=== PATIENT | female | born 1945 | race Caucasian/White ===

== ENCOUNTER 2021-05-28 12:11 | Emergency (ER) | payer MEDICARE, OTHER ==
[2021-05-28 14:01] LABS: BASOPHIL 0.4 % (0-2); EOSINOPHIL 0.4 % (0-7); HCT 37.2 % (37.0-47.0); LYMPHOCYTE 10.7 % (15-48); MCH 30.9 pg (25.0-31.0); MCHC 32.3 g/dL (32.0-36.0); MCV 95.9 fL (78.0-100.0); MONOCYTE 4.1 % (0-12); MPV 10.4 fL (6.0-9.5); NEUTROPHIL 83.8 % (41-80); NRBC 0; PLT 195 K/uL (150-400); RBC 3.88 M/uL (4.20-5.40); RDW 14.4 % (11.5-14.0); WBC 10.5 K/uL (4.0-10.5)
[2021-05-28 14:06] LABS: INR 0.96 (0.9-1.2); PROTHROMBIN TIME 12.2 SECONDS (11.8-13.4)
[2021-05-28 14:07] LABS: PTT 29.7 SECONDS (24.4-34.7)
[2021-05-28 14:13] LABS: ALBUMIN 3.4 g/dL (3.4-5.0); BILIRUBIN - TOTAL 0.4 mg/dL (0.2-1.0); BUN/CREAT RATIO (CALC) 11.6 RATIO; CREATININE 0.95 mg/dL (0.51-0.95); GLOBULIN (CALCULATION) 3.3 g/dL; POTASSIUM 4.1 mmol/L (3.5-5.1); TOTAL PROTEIN 6.7 g/dL (6.4-8.2)
== END 2021-05-28 16:49 | disposition home or self-care (01) ==
LOC: FER 12:11
PROVIDERS: Physician Assistant
DX: M25.512 Pain in left shoulder (principal); R07.89 Other chest pain; R94.31 Abnormal electrocardiogram [ECG] [EKG]; F17.200 Nicotine dependence, unspecified, uncomplicated; Z86.73 Personal history of transient ischemic attack (TIA), and cerebral infarction without residual deficits; Z95.1 Presence of aortocoronary bypass graft; Z95.5 Presence of coronary angioplasty implant and graft; Z79.82 Long term (current) use of aspirin; Z79.01 Long term (current) use of anticoagulants
CPT/HCPCS: 36415; 73030; 80053; 84484; 85025; 85610; 85730; 93005; 93971

== ENCOUNTER 2021-06-17 16:58 | Emergency (ER) | payer OTHER | END 2021-06-17 19:23 | disposition home or self-care (01) | LOC: FER 16:58 | DX: S60.221A Contusion of right hand, initial encounter (principal); I10 Essential (primary) hypertension; W19.XXXA Unspecified fall, initial encounter; Y92.009 Unspecified place in unspecified non-institutional (private) residence as the place of occurrence of the external cause | CPT/HCPCS: 73130 ==